=== PATIENT | male | born 1965 | race Caucasian/White ===

== ENCOUNTER 2017-07-13 10:07 | Emergency (ER) | payer OTHER ==
[~2017-07-13] VITALS: Ht 182.9 cm; Wt 74.6 kg
[2017-07-13 10:11] VITALS: TEMP 36.9; Ht 182.9 cm; Wt 74.6 kg
[2017-07-13] MEDS ORDERED: IBUPROFEN 600 MG TAB PO STA (10:30)
[2017-07-13] MEDS ORDERED: ATEN25TA PO (10:37)
[2017-07-13] MEDS ORDERED: BLOOD PRESSURE PO (10:37)
--- NOTE | 2017-07-13 10:42 | EMERGENCY ROOM VISIT NOTE ---
ED Visit Note First contact with patient: 10:24 CHIEF COMPLAINT: Ankle pain HISTORY OF PRESENT ILLNESS: This 52-year-old male patient presents to the emergency department ambulatory after sustaining an injury to the right ankle and foot with a twisting, inversion motion when he missed a step at work and fell, twisting his ankle. Complains of moderate swelling and pain. The patient complains of pain along the outside of the ankle. The patient does have pain of the foot. The patient rates the pain as sharp and 8/10. There was no audible pop. The patient is barely able to bear weight on the foot. Constant pain, worse with movement, weight bearing, and the dependent position. No knee pain, the patient is able to move their toes. No numbness or weakness of the foot, no laceration. The patient has not had a previous injury to this ankle. The patient has taken nothing for the pain. The patient denies any other injury. REVIEW OF SYSTEMS: A 6 system review of systems was completed with positives and pertinent negatives listed in the HPI. ALLERGIES: No known drug allergies MEDICATIONS: Antihypertensives PMH: Hypertension SOCIAL HISTORY: The patient is employed. He is a smoker. He lives locally PHYSICAL EXAM: Vital Signs: Reviewed Nurse's notes, vital signs stable. GENERAL : This is a 52-year-old male, no acute distress, but appears in pain, well- developed, well-nourished. MENTAL STATUS: Alert, oriented to person place and time, and cooperative. MUSCULOSKELETAL: The right ankle is swollen and tender over the lateral malleolus, but the skin is intact and there is no ligamentous instability. There is moderate fifth metatarsal tenderness. There is no tenderness over the rest of the foot. There is mild proximal fibular tenderness. There is no visual deformity. The foot and toes are warm and well- perfused. Dorsalis pedis pulse 2+. Sensation to pain and light touch is intact. Capillary refill less than 2 seconds. EMERGENCY DEPARTMENT COURSE: I examined the patient. He was given 600 mg oral Motrin. X-rays of the right foot, ankle and tib-fib were reviewed by myself and read by radiology and reveal no acute fracture or dislocation. A gel splint was applied to the ankle under my direction and the position was satisfactory. Neurovascular status was rechecked and intact. The patient was instructed on the use of crutches. The patient was discharged home in good condition. [~ rep ct add3]] RIGHT ANKLE MIN 3 VIEWS ROUTINE, RIGHT TIBIA/FIBULA 2 VIEWS ROUTINE, RIGHT FOOT MIN 3 VIEWS ROUTINE HISTORY: 52 years-old Male fall, right ankle pain Right COMPARISON: None available TECHNIQUE: 3 views of the right ankle, 3 views of the right foot, 2 views of the right tibia and fibula FINDINGS: Tibia/fibula: Mild tricompartmental marginal spurring and joint space narrowing is seen about the knee. No acute fracture or dislocation is identified. Ankle: There is moderate anterolateral soft tissue swelling with small joint effusion. Ankle mortise is well maintained and anatomically positioned. Talar dome is smooth without osteochondral defect. There is mild spurring of the dorsal talonavicular joint. No acute fracture or dislocation identified. Foot: There is no acute fracture, dislocation or significant degenerative changes. Mild degenerative changes are seen within the interphalangeal joints. Negative for opaque foreign body. IMPRESSION: 1. Moderate anterolateral soft tissue swelling about the ankle with small ankle joint effusion. No acute fracture or dislocation is identified involving the imaged right lower extremity. 2. Mild degenerative changes as above. Current/Historical Medications Scheduled Atenolol (Tenormin), 25 MG PO DAILY [Blood Pressure], 1 TAB PO DAILY Allergies Coded Allergies: No Known Allergies (Verified , 07/13/17) Vital Signs Date Time Temp Pulse Resp B/P (MAP) Pulse Ox O2 Delivery O2 Flow Rate FiO2 07/13/17 12:05 79 16 126/78 94 Room Air 07/13/17 10:11 36.9 89 16 116/71 93 Room Air Medications Administered Medications (Trade) Dose Ordered Sig/Noemy Route Start Time Stop Time Status Last Admin Dose Admin Ibuprofen (Motrin Tab) 600 mg NOW STAT PO 07/13/17 10:30 07/13/17 10:32 DC 07/13/17 10:36 600 MG Departure Information Impression Primary Impression: Ankle sprain Additional Impression: Work related injury Dispostion Home / Self-Care Condition GOOD Referrals Marcia Sprague M.D. (MEDICAL) (PCP) Andrea Morocho MD Patient Instructions Ankle Sprain, My [facility] Additional Instructions motrin 600mg every 6-8 hours for moderate pain Wear the splint until seen by orthopedics or Worker's Compensation and use crutches to assist in ambulation Contact an employer approved Worker's Compensation doctor today to schedule a follow-up appointment for recheck and return to full duty Return sooner if any worsening symptoms Problem Qualifiers Primary Impression: Ankle sprain Encounter type: initial encounter Laterality: right
--- NOTE | 2017-07-13 11:06 | DIAGNOSTIC IMAGING REPORT ---
RIGHT ANKLE MIN 3 VIEWS ROUTINE, RIGHT TIBIA/FIBULA 2 VIEWS ROUTINE, RIGHT FOOT MIN 3 VIEWS ROUTINE HISTORY: 52 years-old Male fall, right ankle pain Right COMPARISON: None available TECHNIQUE: 3 views of the right ankle, 3 views of the right foot, 2 views of the right tibia and fibula FINDINGS: Tibia/fibula: Mild tricompartmental marginal spurring and joint space narrowing is seen about the knee. No acute fracture or dislocation is identified. Ankle: There is moderate anterolateral soft tissue swelling with small joint effusion. Ankle mortise is well maintained and anatomically positioned. Talar dome is smooth without osteochondral defect. There is mild spurring of the dorsal talonavicular joint. No acute fracture or dislocation identified. Foot: There is no acute fracture, dislocation or significant degenerative changes. Mild degenerative changes are seen within the interphalangeal joints. Negative for opaque foreign body. IMPRESSION: 1. Moderate anterolateral soft tissue swelling about the ankle with small ankle joint effusion. No acute fracture or dislocation is identified involving the imaged right lower extremity. 2. Mild degenerative changes as above. The above report was generated using voice recognition software. It may contain grammatical, syntax or spelling errors. Electronically signed by: Washington Clinton M.D. 07/13/2017 11:04 AM Dictated Date/Time: 07/13/2017 11:00 AM
[2017-07-13 12:05] VITALS: BP 126/78; PULSE 79; O2SAT 94
== END 2017-07-13 12:15 | disposition home or self-care (01) ==
LOC: C.EDB 10:09 → C.EDC 12:15
DX: M25.571 Pain in right ankle and joints of right foot (principal); Y99.0 Civilian activity done for income or pay; X50.9XXA Other and unspecified overexertion or strenuous movements or postures, initial encounter; I10 Essential (primary) hypertension; F17.200 Nicotine dependence, unspecified, uncomplicated

== ENCOUNTER → 2017-08-03 | Outpatient (CLI) | payer OTHER ==
[~2017-08-03] MED LIST: ATEN25TA PO; BLOOD PRESSURE PO
--- NOTE | 2017-08-03 11:03 | DIAGNOSTIC IMAGING REPORT ---
RIGHT ANKLE MIN 3 VIEWS CLINICAL HISTORY: 52 years-old Male presenting with LATERAL RIGHT ANKLE PAIN AFTER INJURY Right. TECHNIQUE: Frontal, mortise, and lateral views of the right ankle were obtained. COMPARISON: 07/13/2017. FINDINGS: Diffuse soft tissue swelling has slightly decreased from prior, which remains greatest along the lateral malleolus. Ankle mortise intact. Persistent ankle joint effusion suspected. No significant degenerative change. No evidence of acute or subacute fracture. No malalignment. IMPRESSION: Slight interval decrease in soft tissue swelling, which remains most prominent at the lateral malleolus. No evidence of acute or subacute osseous injury. Suspected persistent ankle joint effusion. Electronically signed by: Griffin Freire M.D. 08/03/2017 11:02 AM Dictated Date/Time: 08/03/2017 11:00 AM
== END | disposition home or self-care (01) ==
LOC: C.RDSM 10:36
PROVIDERS: ATTEND Family Medicine
DX: M25.571 Pain in right ankle and joints of right foot (principal)

== ENCOUNTER → 2017-09-16 | Outpatient (CLI) | payer OTHER ==
--- NOTE | 2017-09-16 17:34 | DIAGNOSTIC IMAGING REPORT ---
RIGHT ANKLE MRI HISTORY: RIGHT ANKLE PAIN TECHNIQUE: Multiplanar multisequence MRI of the right ankle was performed without the use of contrast. COMPARISON STUDY: Right ankle 08/03/2017. FINDINGS: No fracture or dislocation. Normal marrow signal intensity seen throughout the visualized osseous structures. Trace joint effusion. The Achilles tendon and plantar fascia are within normal limits. There is abnormal signal and a split tear within the peroneus brevis tendon. The flexor and extensor tendons are intact. Mild lateral subcutaneous edema. Complete tear of the anterior talofibular and calcaneofibular ligaments. The posterior talofibular ligaments are intact. Irregularity of the deltoid ligaments without surrounding edema. This likely represents an old injury/tear. Cartilage spaces are maintained for age. The anterior and posterior tibiofibular ligaments appear intact. IMPRESSION: 1. No fracture or dislocation within the right ankle. 2. Abnormal signal and a split tear involving the peroneus brevis tendon. 3. Complete tears of the anterior talofibular and calcaneofibular ligaments consistent with an acute sprain. There is mild subcutaneous edema laterally within the ankle. 4. Irregularity of the deltoid ligaments without surrounding edema. Therefore, this is due to an old injury/tear. 5. Trace ankle effusion. Electronically signed by: Nadir Maldonado M.D. 09/16/2017 5:32 PM Dictated Date/Time: 09/16/2017 5:26 PM
== END | disposition home or self-care (01) ==
LOC: C.MRIBC 15:21
PROVIDERS: ATTEND Family Medicine
DX: S86.311A Strain of muscle(s) and tendon(s) of peroneal muscle group at lower leg level, right leg, initial encounter (principal); S93.431A Sprain of tibiofibular ligament of right ankle, initial encounter; S93.411A Sprain of calcaneofibular ligament of right ankle, initial encounter; S93.421S Sprain of deltoid ligament of right ankle, sequela; X58.XXXA Exposure to other specified factors, initial encounter

== ENCOUNTER → 2018-03-04 | Outpatient (CLI) | payer OTHER ==
[~2018-03-04] MED LIST changes: +GLUC10007 PO; +LISI-725 PO; +TNR25X PO
[2018-03-04 12:32] LABS: HEMATOCRIT 42.2 % (42-52); HEMOGLOBIN 14.4 g/dL (14.0-18.0); MEAN CELL VOLUME 95.9 fL (80-100); MEAN CORPUSCULAR HEMOGLOBIN 32.7 pg (25-34); MEAN CORPUSCULAR HGB CONC 34.1 g/dl (32-36); MEAN PLATELET VOLUME 9.3 fL (7.4-10.4); PLATELET COUNT 248 K/uL (130-400); RED CELL DISTRIBUTION WIDTH CV 13.8 % (11.5-14.5); RED CELL DISTRIBUTION WIDTH SD 48.5 fL (36.4-46.3); WHITE BLOOD COUNT 6.09 K/uL (4.8-10.8)
[2018-03-04 13:00] LABS: BLOOD UREA NITROGEN 15 mg/dl (7-18); CALCIUM 9.4 mg/dl (8.5-10.1); CARBON DIOXIDE 26 mmol/L (21-32); CREATININE 0.88 mg/dl (0.60-1.40); GLUCOSE 83 mg/dl (70-99); POTASSIUM 4.7 mmol/L (3.5-5.1); SODIUM 136 mmol/L (136-145)
== END | disposition home or self-care (01) ==
LOC: C.LAB1850 11:11
PROVIDERS: ATTEND Physician Assistant
DX: Z01.818 Encounter for other preprocedural examination (principal); M25.371 Other instability, right ankle

== ENCOUNTER → 2018-03-15 | Day surgery (SDC) | payer OTHER ==
[2018-03-05 09:22] VITALS: Ht 182.9 cm; Wt 80.0 kg
[~2018-03-15] VITALS: Ht 182.9 cm; Wt 80.0 kg
[~2018-03-15] MED LIST changes: -ATEN25TA PO; -BLOOD PRESSURE PO; +CEFAZOLIN 2000MG IV PUSH 15 ML IV SCH; +LACTATED RINGER'S 1000ML 500 ML IV SCH
[2018-03-15 06:59] VITALS: BP 167/112; PULSE 125; TEMP 36.9; O2SAT 96
--- NOTE | 2018-03-15 08:32 | Progress Note ---
Progress Note Date of Service Mar 15, 2018. Progress Note Patient was scheduled today with Dr. Crespo for ankle surgery. On arrival his heart rate was 125 and his diastolic BP was greater than 110. EKG showed sinus tachycardia without evidence of ischemia. No complaints of CP or SOB. The patient states that he did not take his atenolol this morning. On further interview, we learned that the patient also chewed gum prior to arriving at the surgical center and that he chewed and swallowed tobacco on the drive here. The patient was canceled for not following hospital policy with respect to NPO guidelines prior to scheduled GA. Dr. Crespo was aware and spoke to the patient prior to discharge from the Surgical Center. The patient will call Dr. Crespo's office to reschedule. The patient was instructed to go straight home and take his atenolol due to his elevated HR. In addition, I verbally discussed with the patient what needed to be done the day before and the day of surgery for when he is rescheduled. A letter was written and will be sent to the patient at his home with the following written instructions. March 15, 3018 Dear Mr. Erick Ross, Below are more detailed instructions to assist you in preparing for your rescheduled surgery at the [facility]. I have written the instructions based on the list of medications that we have for you. Please contact us if you are prescribed any additional medications or if any medications were missing from our list. Also, please do not hesitate to contact the Surgical Center if you have any questions or concerns so that we can ensure your case proceeds smoothly when it is rescheduled. Our phone number is [phone]. Medications: Do NOT TAKE Aleve for 10 days prior to your date of surgery. The day before surgery, please take your atenolol and Lisinopril as scheduled. The morning of surgery, please TAKE your atenolol. DO NOT take your Lisinopril. Please check with Dr. Strickland office for instructions on when to stop taking your Celebrex, Voltaren Gel and capsaicin. Eating Instructions: You may eat and drink without restriction the day before surgery until midnight. DO NOT eat or drink anything after midnight the day before surgery. The morning of surgery, please take your Atenolol with a sip of water. It is ok to brush your teeth, but please spit the toothpaste and water into the sink. After midnight, the following also apply DO NOT smoke the day of surgery. DO NOT chew the day of surgery. Do NOT chew gum, eat hard candy/mints/ lifesavers or anything else. Thank you, Desirae Diaz MD, PhD Anesthesiologist, [facility]
== END | disposition home or self-care (01) ==
LOC: X.SURG 06:41
PROVIDERS: ATTEND Orthopaedic Surgery
DX: S93.491A Sprain of other ligament of right ankle, initial encounter (principal); X50.0XXA Overexertion from strenuous movement or load, initial encounter; Y99.0 Civilian activity done for income or pay; R00.0 Tachycardia, unspecified; Z53.09 Procedure and treatment not carried out because of other contraindication; I10 Essential (primary) hypertension; K21.9 Gastro-esophageal reflux disease without esophagitis; F17.290 Nicotine dependence, other tobacco product, uncomplicated; F17.220 Nicotine dependence, chewing tobacco, uncomplicated; Z91.030 Bee allergy status; Z80.0 Family history of malignant neoplasm of digestive organs; Z82.49 Family history of ischemic heart disease and other diseases of the circulatory system

== ENCOUNTER → 2018-03-29 | Day surgery (SDC) | payer OTHER ==
[2018-03-19 09:06] VITALS: Ht 182.9 cm; Wt 80.0 kg
[~2018-03-29] VITALS: Ht 182.9 cm; Wt 80.0 kg
[~2018-03-29] MED LIST changes: +ATROPINE SULFATE 0.1 MG/ML 5ML SYR IV PRN; +BUPIVACAINE/EPINEPHRINE 0.5% MPF 1:200,000 30 ML VIAL ONE; +DEXAMETHASONE SOD INJ 4 MG/ML VIAL ONE; +EpHEDrine SULFATE 50MG/5ML SYR ONE; +EpHEDrine SULFATE INJ 50 MG/ML AMP IV PRN; +FENTANYL CITRATE INJ 50 MCG/1 ML 2 ML VIAL ONE; +KETOROLAC TROMETHAMINE 30 MG/ML VIAL ONE; +LACTATED RINGER'S 1000ML 1,000 ML IV SCH; -LACTATED RINGER'S 1000ML 500 ML IV SCH; +LIDOCAINE HCL 2% 2 ML VIAL (20MG/ML) ONE; +METOCLOPRAMIDE HCL INJ 5 MG/ML 2 ML VIAL IV PRN; +MIDAZOLAM HCL 1 MG/ML 2ML VIAL ONE; +MoRPHine SULFATE 2 MG/ML CARP IV PRN; +MoRPHine SULFATE 4 MG/ML 1 ML CARP\\VIAL IV PRN; +NURSING VERBAL MED ORDER ONE; +ONDANSETRON INJ 2 MG/ML 2 ML VIAL IV PRN; +ONDANSETRON INJ 2 MG/ML 2 ML VIAL ONE; +OXYC1CAP5 PO; +OXYCODONE/ACETAMINOPHEN 5-325 TAB PO PRN; +PHENYLEPHRINE HCL INJ 10 MG/ML VIAL ONE; +PROPOFOL IV EMULSION 10 MG/ML 20 ML VIAL ONE; +ROCURONIUM BROMIDE 10 MG/ML 5 ML VIAL ONE; +SODIUM CHLORIDE 0.9% 1000ML 1,000 ML IV SCH; +SUCCINYLCHOLINE CHLORIDE 20 MG/ML 10 ML VIAL IV ONE
--- NOTE | 2018-03-29 07:05 | History & Physical Bridge - SC ---
H&P Re-Evaluation Bridge Note: I have examined the patient, reviewed the History & Physical and in the interval since the performance of the History & Physical I have noted the following changes of clinical significance: No changes noted
--- NOTE | 2018-03-29 09:27 | [facility] Post Operative Brief Note ---
Immediate Operative Summary Operative Date March 29, 2018. Pre-Operative Diagnosis Right Ankle Peroneal Brevis Tear Post-Operative Diagnosis Same Procedure(s) Performed Right Ankle Open Peroneus Brevis Tenodesis Surgeon Dr. Crespo Residential [facility] Worker Surgeon(s) Chip Ayoub PA-C Estimated Blood Loss 1 ml Findings Consistent with Post-Op Diagnosis Fluids (cc crystalloids) 900 cc Specimens A. Right Peroneus Brevis Drains None Anesthesia Type General Complication(s) none Disposition Accompanied Pt To Recovery: no Disposition: Recovery Room / PACU
--- NOTE | 2018-03-29 09:51 | [facility] Operative Report ---
Operative Report Operative Date March 29, 2018. Pre-Operative Diagnosis Right Ankle Peroneal Brevis Tear Post-Operative Diagnosis Same Procedure(s) Performed Right Ankle Open Peroneus Brevis Tenodesis Surgeon Dr. Crespo Technology Development Intern Surgeon(s) Chip Ayoub PA-C Estimated Blood Loss 1 ml Fluids 900 cc Specimens A. Right Peroneus Brevis Drains None Anesthesia Type General Complication(s) none Disposition no Recovery Room / PACU Description of Procedure I was present during entire case and assisted with wound closure and splinting. Please see Dr. Crespo procedure note for specifics. I attest to the content of the Intraoperative Record and any orders documented therein. Any exceptions are noted below.
--- NOTE | 2018-03-29 10:04 | Discharge Instructions ---
Discharge Instructions Date of Service March 29, 2018. Admission Reason for Admission: Right Ankle Peroneal Brevis Tear Discharge Discharge Diagnosis / Problem: Right Ankle Peroneal Brevis Tear Discharge Goals Goal(s): Decrease discomfort, Improve function, Increase independence Activity Recommendations Activity Limitations: as noted below Lifting Limitations: gradually increase as tolerated Exercise/Sports Limitations: until after follow-up appointment May Resume Sexual Activity: when tolerated Shower/Bathe: tomorrow, keep incision dry Driving or Machine Use: No driving until cleared by business development specialist Weightbearing Status: Right non-weightbearing (with splint in place and with aide of crutches) . Instructions / Follow-Up Instructions / Follow-Up Post-operative Instructions Dear Patient and Family/Friends, Before you are discharged from the hospital, it is important to know what to expect when you get home after surgery. To that end, we have created this sheet of discharge instructions which covers many commonly asked questions. Make sure you go through this sheet in its entirety with your nurse before you are discharged. Please note that we will go over the specifics of your surgery and recovery when you return for your first post-operative visit. Sincerely, Dr. Crespo Pain Expect to be in a fair amount of pain after surgery. Remember, our goal is not to eliminate your pain, but to make it tolerable. It is a good idea to stay ahead of your pain by taking the medications you were prescribed once you get home. Typically, the pain starts improving 3-7 days after surgery. You should start weaning off the narcotic pain medication (oxycodone, hydrocodone, hydromorphone, morphine) as soon as your pain improves. Please call our office if your pain is not adequately controlled. Ice Ice your operative site at least 5 times a day for 15-30 minutes at a time. Make sure you have a thin cloth between the ice or cooling unit and your skin to prevent francisco bite. This is especially important if you received a nerve block. Continue icing your operative site for the first 5-7 days after surgery , then as needed. Diet/Nausea/Vomiting Start by drinking clear liquids and eating crackers. If you can tolerate this, then you may resume your normal diet. If you feel nauseated or vomit, take Zofran/ondansetron (if prescribed). Please call our office if you have intractable nausea or vomiting, or, if after hours, you may go to the Emergency Room for help. Constipation Constipation is a common side effect of narcotic pain medication. If you have not had a bowel movement within 2 days after surgery, we recommend purchasing an over the counter laxative such as Milk of Magnesia, Dulcolax, or Miralax from a local pharmacy, and taking it as instructed. Call our clinic if any questions. Slings and Braces If you were placed in a sling or brace, it must be worn at all times, including sleep. You may remove your sling or brace for physical therapy, home exercises , and showering. The length of time you will be in your brace and range of motion restrictions depends on what surgery you had; these details will be reviewed at your first post-operative appointment. Weight bearing and Range of Motion. Do not bear any weight through your operative extremity immediately after surgery. If you had upper extremity surgery, do not lift anything with that arm. If you are in a knee brace, keep it locked in place until your follow-up. We will discuss your weight bearing, range of motion, and lifting restrictions in detail at your first post-operative appointment. Continuous Passive Motion (CPM) Machine If you were prescribed a CPM machine, it will start after your first post- operative appointment, at which time we will give you instructions on the range of motion settings and duration of treatment Physical therapy You will be given a prescription for physical therapy or occupational therapy at your first post-operative appointment. Typically, patients start therapy within 1 week of surgery Wound care and showering We will inspect your wound at your first post-operative visit, and may do a dressing change at that time. Most patients will be in a water-proof dressing that is removed 14 days after surgery. It is normal to see some dried blood on the dressing. Do not remove your dressing, paper strips or sutures yourself unless you are given permission. Showering is allowed the day after surgery. Do not scrub or remove any dressings. The wound should not be submerged underwater (i.e. in a bathtub or pool) until 4 weeks after surgery ABIMAEL stockings If you were given white stockings, these are to be worn at all times except to shower (on both legs) for the first 2 weeks after surgery. Driving You may not drive while taking narcotic pain medication or while in a cast, splint, sling or brace. You, the patient, need to make the final determination about when you are safe to drive, however, the earliest you may consider driving after surgery is below: Hand/Wrist/Elbow Surgery: 3 days Shoulder Surgery: 2 weeks Hip,/Knee/Ankle Surgery: 4 weeks Fracture repair: 6 weeks Return to Work Your return to work depends on what surgery was done and what type of work you do. Please bring any paperwork your employer needs completed to your first post -operative visit. Also, bring a description of your job duties, as this helps us to understand what risks you may face at work. Travel Avoid long distance travel (greater than 1 hour) in airplanes and cars for the first 6 weeks after surgery. If you must travel, you need to have a Doppler ultrasound done before you travel to rule out a blood clot in your legs. Follow-up You should have a follow-up appointment already scheduled 1-2 days after surgery. If not, please contact our office to make this appointment before you leave the hospital. When to call the office It is normal to have swelling and bruising in the limb that was operated on. This will improve with time. It is also normal to have fevers for the first 2 days after surgery. Reasons you should call your doctor include: Uncontrolled pain; Nausea, vomiting, or constipation that does not improve with medication; Fevers over 101.5, chills, sweats; Drainage or bleeding from the wound; Foul odor; Spreading areas of redness; Any other concerns Current Hospital Diet Patient's current hospital diet: Discharge Diet Recommended Diet: Regular Diet Procedures Procedures Performed: Right Ankle Open Peroneus Brevis Tenodesis Pending Studies Studies pending at discharge: no Medical Emergencies . Who to Call and When: Medical Emergencies: If at any time you feel your situation is an emergency, please call 911 immediately. . Non-Emergent Contact Non-Emergency issues call your: Primary Care Provider Call Non-Emergent contact if: you have a fever, temperature is above 101.5, your pain is not controlled, your pain is worsening, wound has increased drainage, you have any medication questions . "Provider Documentation" section prepared by Jamarcus Ayoub. . [place] Drug Monitoring Program Search Results: patient reviewed within database, no issues identified, see additional documentation
[2018-03-29] MEDS: FENTANYL CITRATE INJ 50 MCG/1 ML 2 ML VIAL IV PRN ×3 (10:15→10:28)
[2018-03-29 10:54] VITALS: TEMP 36.8
[2018-03-29 11:11] VITALS: BP 159/94; PULSE 87; O2SAT 94
--- NOTE | 2018-03-29 11:17 | Anesthesia Progress Nt - [facility] ---
Anesthesia Post Op Note Date & Time March 29, 2018 at 11:16 Vital Signs Pain Intensity: 4 Vital Signs Past 12 Hours Date Time Temp Pulse Resp B/P (MAP) Pulse Ox O2 Delivery O2 Flow Rate FiO2 03/29/18 11:11 87 18 159/94 (115) 94 Room Air 03/29/18 10:54 36.8 90 18 161/99 (119) 94 Room Air 03/29/18 10:46 84 20 03/29/18 10:46 83 20 91 03/29/18 10:45 Room Air 03/29/18 10:45 150/100 03/29/18 10:41 86 13 03/29/18 10:41 86 13 94 03/29/18 10:40 153/101 03/29/18 10:38 86 11 03/29/18 10:38 86 11 98 03/29/18 10:35 157/96 03/29/18 10:33 90 17 97 03/29/18 10:33 90 17 03/29/18 10:30 149/104 03/29/18 10:28 88 10 03/29/18 10:28 87 10 94 03/29/18 10:25 153/96 03/29/18 10:23 92 17 03/29/18 10:23 37.2 94 Room Air 03/29/18 10:23 94 17 94 03/29/18 10:22 87 10 95 03/29/18 10:22 87 10 03/29/18 10:20 150/96 03/29/18 10:17 87 12 95 03/29/18 10:17 87 12 03/29/18 10:15 156/97 03/29/18 10:12 89 8 95 03/29/18 10:12 89 8 03/29/18 10:11 90 15 03/29/18 10:11 89 15 160/101 97 03/29/18 10:06 94 15 95 03/29/18 10:06 93 15 03/29/18 10:05 156/97 03/29/18 10:01 88 12 98 03/29/18 10:01 88 12 03/29/18 10:00 89 9 153/98 99 03/29/18 10:00 89 9 03/29/18 09:55 90 12 03/29/18 09:55 92 12 137/93 99 03/29/18 09:51 147/94 03/29/18 09:51 36.8 87 16 147/94 98 Mask 9 03/29/18 07:14 152/99 (116) 03/29/18 06:54 36.9 83 18 179/111 (133) 95 Room Air Notes Mental Status: alert / awake / arousable, participated in evaluation Pt Amnestic to Procedure: Yes Nausea / Vomiting: adequately controlled Pain: adequately controlled Airway Patency, RR, SpO2: stable & adequate BP & HR: stable & adequate Hydration State: stable & adequate Anesthetic Complications: no major complications apparent
--- NOTE | 2018-03-29 12:06 | OPERATIVE REPORT ---
DATE OF OPERATION: 03/29/2018 PREOPERATIVE DIAGNOSIS: Right ankle peroneus brevis tear. POSTOPERATIVE DIAGNOSIS: Right ankle peroneus brevis tear. PROCEDURE: Right ankle peroneus brevis tenodesis to the peroneus longus. SURGEON: Griffin Crespo M.D. RIVET THROWER: Jamarcus Ayoub PA-C ESTIMATED BLOOD LOSS: 1 mL. IV FLUIDS: 900 mL crystalloid. SPECIMENS: Right peroneus brevis tendon. COMPLICATIONS: None. IMPLANTS: None. INDICATIONS: Mr. 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 He initially presented to my clinic with extreme sensitivity over the lateral aspect of the foot concerning for a complex regional pain syndrome type of picture. He was placed into physical therapy. Eventually, his nerve-related pain resolved; however, he continued to have focal pain over the course of the peroneus brevis tendon in the region of the distal fibula. He also had inability to perform his proprioception and balance exercises and physical therapy without continued pain and disability. These are activities that are required of his job as a stock mover, walking on uneven ground. MRI had been obtained showing a horizontal tear of the peroneus brevis tendon. After reviewing the risks and benefits of surgery, alternatives to surgery and expected outcomes, he elected to proceed. All questions were answered. Informed consent was signed. OPERATIVE FINDINGS: The peroneus brevis showed tear with tendinopathic changes involving approximately 70% of the thickness of the tendon. Therefore, a tenodesis was performed of the peroneus brevis to the peroneus longus approximately 3.5 cm above the distal fibula to avoid any entrapment. The superior and inferior peroneal retinaculum were closed at the conclusion of the case. The patient was placed in a short leg splint. DESCRIPTION OF OPERATION: The patient was identified in the preoperative holding area where his surgical site was marked. He was brought back to the main operating room where he was placed on the operating room table and general anesthesia was administered. He was moved in the lateral decubitus position. All bony prominences were padded. Perioperative antibiotics were administered. We did perform an exam under anesthesia, demonstrating no anterior laxity with negative anterior drawer test, symmetric in the right side with the left side. The patient was then prepped and draped in the normal sterile fashion. Prior to incision, a multidisciplinary timeout was called. All in the room are in agreement. We began by exsanguinating the limb with an Esmarch bandage. The tourniquet was inflated to 250 mmHg. We then made an incision overlying the course of the peroneus brevis starting approximately 4 cm above the tip of the distal fibula for a total length of approximately 8 cm. We dissected down through the subcutaneous tissues to the level of the fascia. The sural nerve was not encountered during our dissection, although we did look for it carefully. We then incised through the inferior and superior peroneal retinaculum leaving a cuff of soft tissue attached to the distal fibula to facilitate repair. The peroneus brevis and peroneus longus tendons were then individually inspected. The peroneus longus tendon was completely intact. The peroneus brevis tendon; however, was diseased from approximately 1 cm above the tip of the distal fibula all the way until approximately 2 cm from the insertion onto the base of the fifth metatarsal. Total length of diseased tendon was approximately 8 cm. Approximately 70% of the thickness of the tendon was diseased and torn. I therefore felt it was in the patient's best interest to not attempt at repair as this was likely to fail. Therefore, the #2 Ethibond suture was opened up. Some low lying muscle belly on the peroneus brevis was excised, so there would be adequate space posterior to the distal fibula. The peroneus brevis was then tenodesed to the peroneus longus using two #2 Ethibond sutures in a horizontal mattress fashion approximately 3.5 cm above the tip of the distal fibula. Once the sutures were in place, the ankle was brought through a full range of motion and there was no impingement on the sutures against the distal fibula. There was also no instability of the peroneal tendons. The peroneus brevis tendon distal to the tenodesis was then excised sharply both proximally and distally. This tendon was sent to pathology. The wound was then irrigated with copious amounts of normal saline. The superior and inferior peroneal retinacula were closed with 3-0 Vicryl sutures. The skin was closed with 3-0 Vicryl in an inverted fashion. Skin was then run with 3-0 Monocryl in a subcuticular fashion. Steri-Strips were applied followed by a sterile dressing. The patient was placed into a short leg splint with the ankle held at neutral. He was then carefully turned supine, extubated and transferred to the recovery room in stable condition. POSTOPERATIVE COURSE: The patient will be discharged home from the recovery room. He will be nonweightbearing in the splint for the next two weeks. At the two week point, we will remove his splint and allow him to start weightbearing as tolerated in a Cam boot. He will start active range of motion exercises out of the boot in the sagittal plane. We will avoid inversion and eversion exercises until he is four weeks out from surgery. He will be on aspirin for DVT prophylaxis. I attest to the content of the Intraoperative Record and any orders documented therein. Any exception s are noted below.
== END | disposition home or self-care (01) ==
LOC: X.SURG 06:42
PROVIDERS: ATTEND Orthopaedic Surgery
DX: S86.311A Strain of muscle(s) and tendon(s) of peroneal muscle group at lower leg level, right leg, initial encounter (principal); X58.XXXA Exposure to other specified factors, initial encounter; I10 Essential (primary) hypertension; K21.9 Gastro-esophageal reflux disease without esophagitis